=== PATIENT | female | born 1985 | race Caucasian/White ===

== ENCOUNTER 2021-12-02 08:15 | Emergency (ER) | payer BC ==
[2021-12-02] MEDS ORDERED: Ondansetron PF 4 MG/2 ML Vial ONE (08:33)
[2021-12-02] MEDS ORDERED: Ketorolac Tromethamine 30 MG/ML VIAL ONE (08:33)
[2021-12-02] MEDS ORDERED: Sodium Chloride 0.9% 1,000 ML ONE (08:34)
[2021-12-02 09:06] LABS: BHCG - Serum Negative (NEGATIVE); Pregs Control Background? CLEAR/WHITE (CLR/WHITE); Pregs Control Bar Appear? YES (CONTROL BAR)
[2021-12-02 09:11] LABS: Bilirubin Small (Negative); Blood, Urine Moderate (Negative); Glucose, Urine (Dipstick) Negative (Negative); Ketone, Urine Negative (Negative); Leukocyte Negative (Negative); Nitrite Negative (Negative); Protein, Urine (Dipstick) 30 mg/dL (Neg-Trace); Urobilinogen 0.2 mg/dL (Less than 2)
[2021-12-02 09:14] LABS: ALT (SGPT) 16 U/L (8-55); AST (SGOT) 19 U/L (5-34); Albumin 4.5 g/dL (3.5-5.0); Alkaline Phosphatase 83 U/L (40-110); Anion Gap 16 mmol/L (10-20); BUN (Urea Nitrogen) 12 mg/dL (7.0-18.7); Bilirubin, Total 0.4 mg/dL (0.2-1.2); Calc. Creatinine Clearance 0 mL/min (70-130); Calcium 9.4 mg/dL (7.8-10.44); Carbon Dioxide 22 mmol/L (22-29); Chloride 102 mmol/L (98-107); Globulin 3.4 g/dL (2.4-3.5); Glucose 78 mg/dL (70-105); Magnesium 1.9 mg/dL (1.6-2.6); Potassium 3.9 mmol/L (3.5-5.1); Protein, Total 7.9 g/dL (6.0-8.3); Sodium 136 mmol/L (136-145)
[2021-12-02 09:17] LABS: #Basophils 0.1 thou/uL (0.0-0.2); #Eosinphils 0.5 thou/uL (0.0-0.7); #Lymphocytes 0.7 thou/uL (1.20-3.40); #Monocytes 0.6 thou/uL (0.11-0.59); #Neutrophils 3.4 thou/uL (1.40-6.50); %Basophils 1.7 % (0.0-1.0); %Eosinophils 9.4 % (0.0-10.0); %Lymphocytes 13.1 % (21.0-51.0); %Monocytes 11.5 % (0.0-10.0); %Neutrophils 64.3 % (42.0-75.0); Hemoglobin 13.8 g/dL (12.0-16.0); Mean Corpuscular Hemoglobin 28.6 pg (27.0-31.0); Mean Corpuscular Volume 89.3 fL (78.0-98.0); Mean Platelet Volume 9.7 fL (7.4-10.4); Platelet Count 153 thou/uL (130-400); RBC Distribution Width 11.9 % (11.5-14.5); Red Blood Cell (RBC) Count 4.81 mill/uL (4.20-5.40); Specific Gravity, Urine 1.028 (1.002-1.036); White Blood Cell (WBC) Count 5.3 thou/uL (4.8-10.8)
[2021-12-02 09:18] LABS: Clarity Hazy (Clear)
[2021-12-02 09:21] LABS: Bacteria/HPF Rare-Few HPF (None Seen); Mucous/LPF 2+ LPF (<2+); WBC/HPF 0-3 HPF (0-3)
== END 2021-12-02 10:05 | disposition home or self-care (01) ==
LOC: MADERS 08:15
DX: N20.2 Calculus of kidney with calculus of ureter (principal)
CPT/HCPCS: 74176; 80053; 81003; 81015; 83735; 84703; 85025; 96374; 96375; J1885; J2405; J7050

== ENCOUNTER 2021-12-15 20:27 | Emergency (ER) | payer BC ==
[2021-12-15] MEDS ORDERED: Acetaminophen 325 MG TAB ONE (21:57)
== END 2021-12-15 22:00 | disposition home or self-care (01) ==
LOC: EEVIPCON 20:27 → MADERS 20:27
DX: J02.9 Acute pharyngitis, unspecified (principal)
CPT/HCPCS: 87081; 87430; 99283